=== PATIENT | male | born 1985 | race Caucasian/White ===

== ENCOUNTER 2023-05-24 09:42 | Outpatient (CLI) | payer OTHER ==
--- NOTE | 2023-05-24 10:43 | Sleep Patient Instructions ---
Sleep Center Visit Summary - Patient Visit Information Reason for Visit: Initial consult for evaluation of sleep disordered breathing and other sleep issues. - Patient Instructions Instructions Attached: Sleep Study Home Monitor, Sleep Clinic Visit, Sleep Study Additional Instructions: You will be completing a sleep study, either an in-lab polysomnography (PSG) or home sleep study (HST). You will follow-up in the sleep care office after the sleep study is completed to hear the results and talk about therapy, if needed. You will be called by our office staff to schedule this appointment, but you may contact us with any questions. - Clinic Information Contact: [facility] [address] [place] [address] [email or web address] T: [phone]
--- NOTE | 2023-05-24 10:45 | SLEEP CARE CONSULTATION ---
Information from patient questionnaire entered by Tania Westfall. I have reviewed and concur with the information entered by Tania Westfall. This document represents the service I personally performed and the decisions made by me, Jessica Coats ARNP. History of Present Illness Service Date and Time: 05/24/2023 0942 Reason for Visit: New patient Chief Complaint: reports: Unrefreshed sleep, Snoring, Excessive daytime sleepiness, Observed pauses in breathing, Fatigue, Frequent awakenings at night Date of Onset: 10+YRS Usual bedtime: 9-10PM Time it takes to fall asleep: 10MIN-2HRS Snores at night: Yes Observed to quit breathing while asleep: Yes Sleeps alone due to snoring: Yes Number of times waking at night: 4-5 Reasons for waking at night: reports: Choking, Snoring, Gasping for air, Bathroom, Other (uncomfortable) Toss, Turn, or Twitch while sleeping: Yes Recalls having dreams: Yes Usually gets out of bed at: [id number] DEPENDING ON THE SHIFT Feels refreshed in the morning: No Morning headache: Yes (3-4 days a week, mild; AFTER TAKING ADVIL) Sleepy or fatigued during the day: Yes (some unintentional naps, shawna watching TV) Ever fallen asleep while driving: No Takes day naps: Yes (15-30 minutes, power naps 2-3 days a week) Dreams during day naps: No Prior sleep studies: No Additional HPI information: I had the pleasure of seeing RICHY MELGOZA today regarding the possibility of him having a sleep disorder. His current complaints are unrefreshed sleep, snoring, excessive daytime sleepiness, observed pauses in breathing, fatigue and frequent night awakenings. He states he is tired all the time. His shifts at work change back and forth from days to nights. He can fall asleep in about 10 minutes but if his stress is high he can take up to 2 hours to fall asleep. His has told him that he snores loudly and will stop breathing/choking in sleep. He has woke up feeling like he is choking and also gasping for air. He will wake up 4-5 times during the night, sometimes snoring and usually just trying to get comfortable. - Parasomnia Symptoms Ever been unable to move upon waking from sleep: No Walks in sleep: No Talks in sleep: Yes (little bit) Ever acted out dreams in sleep: Yes (not really) Ever felt weak in the knees when startled or emotional: No Bothered by creepy, crawly, restless sensations in legs: Yes (any time sitting still; shawna when laying down) Problems with memory or concentration: Yes (both) Subjective Initial [place] Sleepiness Scale score: 13 (05/23/23) Past Medical History Past Medical History: reports: Hypertension, Anxiety, GERD Social History The patient's occupation is a AN. Patient is and lives in . Have you smoked in the past 12 months: No Alcohol use: Yes Alcohol amount and frequency: 1-2 ONCE A WEEK Caffeine use: Yes Caffeine amount and frequency: 1 PER DAY Family History Family history of sleep disordered breathing: Yes Family Hx Sleep Apnea: Father: Snoring, Sleep apnea - Untreated, Sibling: Snoring, Sleep apnea - Untreated Allergies and Home Medications Known drug allergies: No Drug allergies reviewed: Yes Home medication list reviewed: Yes Allergy and home medication list: Home Medications Medication Instructions Recorded Confirmed Last Taken Type Esomeprazole Magnesium [Nexium See Rx Instructions .ROUTE .COMPLEX 05/23/23 05/24/23 Unknown History 24Hr] Ibuprofen [Advil] See Rx Instructions .ROUTE .COMPLEX 05/23/23 05/24/23 Unknown History Lisinopril 20 mg ORAL DAILY 05/24/23 05/24/23 Unknown History Review of Systems Weight loss over past 5 years: 8 Cardiovascular: reports: high blood pressure, chest pain Respiratory: denies: shortness of breath Gastrointestinal: reports: heartburn Neurological: denies: headaches, head trauma Psychiatric: reports: anxiety Ear/Nose/Throat: denies: tonsillectomy Endocrine: reports: sluggishness Physical Exam Vital signs obtained and entered by: TANIA Sandy MA Blood Pressure: 120/62 (LEFT ARM) Cuff size: regular Heart Rate: 69 O2 Saturation: 98 Height: 5 ft 8 in Weight: 204 lb 3.2 oz Body Mass Index: 31.0 BMI Classification: Obese Neck circumference: 17.75 Nostrils: patent to airflow Mouth and throat: narrow oropharynx Soft palate: long Hard palate: normal Uvula: normal Uvula visualization: 25% Mallampati Class III Tongue: enlarged in size with teeth linton on lateral edges Tonsils: small Neck: normal w/o lymphadenopathy or thyromegaly Heart: regular rate and rhythm Lungs: clear bilaterally Impression and Plan 1. Suspected Obstructive Sleep Apnea-Hypopnea Syndrome, as suggested by a history of loud and irregular snoring, observed cessation of breath while asleep, gasping or choking in sleep, morning headache, frequent awakening during the night, unrefreshed sleep, cognitive impairment, and excessive daytime sleepiness. Narrow oropharynx and obesity are common predisposing factors for obstructive sleep apnea-hypopnea syndrome. I recommend proceeding to polysomnography to confirm the diagnosis and to assess severity. If the patient has significant sleep disordered breathing, a manual CPAP titration study will also be performed to find the optimal treatment pressure. I informed the patient of what the sleep studies involve and after some discussion, obtained agreement to proceed. The pathophysiology of obstructive sleep apnea-hypopnea syndrome was discussed with the patient and health risks of cardiovascular and cerebrovascular disease if not treated. Risks of drowsy driving discussed in detail and patient advised to avoid long distance driving and to stick puller at the first sign of drowsiness. Patient agreed to plan. * Schedule polysomnography. * Avoid long distance driving or driving when feeling sleepy. * Avoid alcohol, sedative and muscle relaxant around bedtime. * Attempt to lose weight. * Review instructions provided by trained office staff on how to prepare for the sleep study. * Return for follow-up after sleep study completed. Counseling Topics: Weight loss health impact Plan: PSG/HST Visit Type: In Office Time Spent with Patient (minutes): 30 Provider Statement: I spent 100% of the Face to Face Visit with the patient with greater than 50% spent counseling the patient and coordination of care.
[2023-05-24 10:52] VITALS: BP 120/62; O2SAT 98
== END 2023-05-24 09:43 | disposition home or self-care (01) ==
LOC: SC 09:42
PROVIDERS: ATTEND Nurse Practitioner Family
DX: R06.83 Snoring (principal); R06.81 Apnea, not elsewhere classified; G47.8 Other sleep disorders; R41.89 Other symptoms and signs involving cognitive functions and awareness; G47.10 Hypersomnia, unspecified; E66.9 Obesity, unspecified; Z68.31 Body mass index [BMI] 31.0-31.9, adult
CPT/HCPCS: 99203; 99212